=== PATIENT | female | born 1975 | race American Indian/Alaskan Native ===

== ENCOUNTER 2021-12-13 05:59 | Emergency (ER) | payer OTHER, SELFPAY ==
--- NOTE | 2021-12-13 06:01 | ED_ITS ---
HPI - Female Genitourinary General Chief complaint: Urogenital-Female Stated complaint: bladder/kidney pain x5 hours Time Seen by Provider: 12/13/21 06:00 History of Present Illness HPI Narrative: 46F nonsmoker with history of kidney stones presents with her in the chief complaint of a relatively sudden onset left flank pain that prevented her from sleeping this morning at about 130. She denies obvious provocation or palliation but states perhaps a gets worse with motion. Additionally she states that for the past day or perhaps to she has had urinary frequency, dysuria and urgency. She denies any fever chills and has no nausea or vomiting. She has had no change in appetite. She denies vaginal bleeding or discharge. She has no runny nose, sore throat or cough. She has had kidney stones in the past but also urinary tract infections and states this feels similar to both. Related Data Previous Rx's Medication Instructions Recorded cefdinir 300 mg capsule 300 mg PO BID #20 cap 12/13/21 ketorolac 10 mg tablet 10 mg PO Q6H PRN #14 tab 12/13/21 ondansetron 4 mg disintegrating 4 mg PO TID-QID PRN #10 tab 12/13/21 tablet Allergies Allergy/AdvReac Type Severity Reaction Status Date / Time No Known Drug Allergies Allergy Verified 12/13/21 06:10 Review of Systems Review of Systems Narrative: GENERAL: See HPI HEENT: Denies sinus pain, ear pain, sore throat, difficulty swallowing, dizziness. RESPIRATORY: Denies dyspnea, cough, wheezing, hemoptysis, sputum. CARDIOVASCULAR: Denies chest pain, palpitations, orthopnea, edema, GASTROINTESTINAL: Denies nausea, vomiting, abdominal pain, diarrhea, constipation, melena. : See HPI MUSCULOSKELETAL: denies weakness, joint pain, or bony pain SKIN: Denies rash, skin lesions, or other NEUROLOGIC: Denies weakness, headache, numbness, change in speech, confusion, seizures, incoordination. PSYCHIATRIC: No concerning psychosocial issues. 12 point review of systems is negative except for those stated above Exam Narrative Exam Narrative: GENERAL: [46 year old patient appears stated age. Well-developed patient, in mild distress. Obviously uncomfortable, rubbing her left flank HEAD: Atraumatic. Normocephalic. EYES: Pupils equal round and reactive. Extraocular motions intact. No scleral icterus. No injection or drainage. ENT: Nose without bleeding, purulent drainage. Throat without erythema, tonsillar hypertrophy or exudate. Airway patent. NECK: Trachea midline. Non tender CARDIOVASCULAR: Regular rate and rhythm without murmurs, gallops, or rubs. RESPIRATORY: Clear to auscultation. Breath sounds equal bilaterally. No wheezes, rales, or rhonchi. GASTROINTESTINAL: Abdomen soft, mild suprapubic tenderness, nondistended. EXTREMITIES: No edema or joint tenderness. BACK: Nontender without deformity or crepitance. No flank tenderness. NEURO: AOx3. SKIN: No rash or erythema of visible areas Initial Vital Signs Initial Vital Signs: Vital Signs Temperature 97.5 F L 12/13/21 06:10 Pulse Rate 88 12/13/21 06:10 Respiratory Rate 16 12/13/21 06:10 Blood Pressure 171/92 H 12/13/21 06:10 Pulse Oximetry 96 12/13/21 06:10 Course Orders Ordered: Discontinued Medications Sodium Chloride (Normal Saline 0.9%) 1,000 mls @ 1,000 mls/hr IV BOLUS ONE Stop: 12/13/21 07:11 Last Infusion: 12/13/21 07:40 Dose: 0 mls/hr Documented by: Admin: 12/13/21 06:22 Dose: 1,000 mls/hr Documented by: MARY Ceftriaxone Sodium 2,000 mg/ (Sodium Chloride) 100 mls @ 200 mls/hr IV NOW ONE Stop: 12/13/21 06:15 Last Infusion: 12/13/21 07:41 Dose: 0 mls/hr Documented by: Admin: 12/13/21 06:22 Dose: 200 mls/hr Documented by: MARY Ketorolac Tromethamine (Ketorolac 30 Mg/Ml Vial) 15 mg IV NOW ONE Stop: 12/13/21 06:13 Last Admin: 12/13/21 06:22 Dose: 15 mg Documented by: MARY Vital Signs Vital signs: Vital Signs - 8 hr 12/13/21 06:10 Temperature 97.5 F L Pulse Rate 88 Respiratory Rate 16 Blood Pressure 171/92 H Pulse Oximetry 96 MDM - Female Genitourinary Lab Data Result diagrams: 12/13/21 06:30 12/13/21 06:30 Labs: Lab Results 12/13/21 12/13/21 12/13/21 Range/Units 06:10 06:30 06:30 WBC 12.5 H (4.5-11.0) X10^3/uL RBC 4.66 (4.0-5.2) X10^6/uL Hgb 12.5 (12.0-16.0) g/dL Hct 38.0 (36-46) % MCV 81.6 (80-100) fL MCH 26.8 (26-34) PG MCHC 32.8 (30-36) % RDW 13.5 (11.6-14.8) % Plt Count 391 (150-400) X10^3/uL Neut % (Auto) 73.1 (50-75) % Lymph % (Auto) 16.9 L (25-40) % [place] % (Auto) 4.3 (3-14) % Eos % (Auto) 4.5 H (2-4) % Baso % (Auto) 1.2 (0-2) % Neut # (Auto) 9200 H (6518-5157) /uL Lymph # (Auto) 2100 (5739-2483) /uL [place] # (Auto) 500 (0-900) /uL Eos # (Auto) 600 H (0-450) /uL Baso # (Auto) 100 (0-100) /uL Sodium 138 (137-145) mmol/L Potassium 3.7 (3.4-5.1) mmol/L Chloride 104 (98-107) mmol/L Carbon Dioxide 27 (22-32) mmol/L BUN 13 (7-17) mg/dL Creatinine 0.65 (0.52-1.04) mg/dL Estimated GFR > 60 (>60) mL/min BUN/Creatinine Ratio 20.0 (6-22) Glucose 104 H (70-100) mg/dL Calcium 8.6 (8.4-10.2) mg/dL Urine RBC None seen (0-5/HPF) Urine WBC 30-100/hpf H (0-5/HPF) Ur Squamous Epith Cells 0-1 /hpf (0-5/HPF) Urine Bacteria Moderate (10-30) H (None) Ur Culture Indicated? Specimen cultured Point of Care Testing Test Results Negative Urine Dip Bedside Urine Glucose Negative Bedside Urine Bilirubin - Negative Bedside Urine Ketone - Negative Urine Specific [place] 1.010 Bedside Urine Occult Blood +++ Bedside Urine pH 6.0 Bedside Urine Protein - Negative Bedside Urine Urobilinogen - Negative Bedside Urine Nitrite - Negative Bedside Urine Leukocytes ++ [address] scan - abdomen/pelvis: Radiologist's Impression: Launch?[address] [address] [address] Scan Report Signed Patient: Amanda Walls MR#: [id number] : 1975 Acct:[id number] Age/Sex: 46 / F Date of Service: 12/13/21 Loc: ED Accession Number: [id number] ?? Procedure: CT kidney ureter bladder (KUB) Ordering Provider: Pito Castillo D.O. PROCEDURE:? CT KIDNEY URETER BLADDER (KUB) ? INDICATIONS:? flank pain, hematuria, history of kidney stones, ? TECHNIQUE:? Axial sections were acquired from the lung bases to the pubic symphysis.? Raghu nal and sagittal reformats were performed.? For radiation dose reduction, the following was used: ?automated exposure control, adjustment of mA and/or kV according to patient size.? ? COMPARISON:? None. ? FINDINGS:? Image quality:? Excellent.? ? Lung bases:? Unremarkable.? ? Heart:? No significant findings. ? URINARY: Right Kidney: ? No hydronephrosis.? There is a tiny 1-2 mm right-sided kidney st one, as on series 2, image 42. Right Ureter:? No hydroureter.? ? Left Kidney: ? No stones or hydronephrosis. Left Ureter:? No hydroureter.? ? Bladder:? Normal wall thickness. No stones. ? ? ? ABDOMEN: Liver:? Diffuse fatty liver infiltration is noted.? The liver is prominent in size and demonstrates no suspicious lesions. Gallbladder:? Removed.? ? Biliary ducts:? Unremarkable.? ? Pancreas:? Unremarkable.? ? Spleen:? Unremarkable.? ? Adrenal Glands:? Unremarkable.? ? ? Stomach and Bowel:? Stomach, small bowel loops, and colon are unremarkable.? Colonic diverticulosis is seen, without findings of active diverticulitis. Peritoneum:? No abnormal intraperitoneal fluid.? No free air.? ? Ventral Wall: ? No hernia.? Abdominal Nodes:? No enlarged retroperitoneal or mesenteric lymph nodes.? Vessels:? Aorta and inferior vena cava are normal in size.? ? PELVIS: Pelvic Organs: This patient is status post hysterectomy. No adnexal masses are seen.? Pelvic Nodes: Unremarkable. Miscellaneous: No inguinal hernias are seen. ? ? ? Bones:? Unremarkable. ? IMPRESSION:? Negative for ureteral stones or hydronephrosis. ? Tiny 1-2 mm right-sided kidney stone noted. ? ? Incidental note is made of: Enlarged, fatty liver Cholecystectomy Hysterectomy Diverticulosis, without active diverticulitis ? Note: No significant discrepancy from the preliminary report. ? Dictated by: Jhonathan Newsome M.D. on 12/13/2021 at 7:16 ? ? Approved by: Johnathan Newsome M.D. on 12/13/2021 at 7:19 ? Discharge Plan Departure Patient Disposition: Home Clinical Impression: Pyelonephritis Instructions: DI for Kidney Infection Activity Restrictions/Additional Instructions: *You have been diagnosed with [left flank pain from kidney infection. As we discussed your history, physical exam, labs and CT are very reassuring. There is no kidney stone and you have no signs of sepsis. *What to do: *Please continue to take your regular medications as directed. [x ] New medication prescriptions sent to your pharmacy: [[facility] [place] ] [ ] New medication written as a paper prescription [ ] No new medications given *Please follow up with your primary care provider in 2-3 days, call for an appointment. Let them know you were seen in the Emergency Department and that we ask that you be seen in follow up. We will electronically transmit a record of today's note if your PCP is in our system *If you do not have a primary care provider please contact the [facility] Resource line at [phone]. They will ask some questions about your medical history and help get you set up with a doctor in the community. *Return to Emergency Department if you should have any new, worsening or concerning symptoms, such as [fever greater than 101 F, shaking chills, worsening pain, persistent vomiting or other bothersome symptoms] Prescriptions: New cefdinir 300 mg capsule 300 mg PO BID Qty: 20 0RF ketorolac 10 mg tablet 10 mg PO Q6H PRN (Reason: pain) Qty: 14 0RF ondansetron 4 mg tablet,disintegrating 4 mg PO TID-QID PRN (Reason: nausea and vomiting) Qty: 10 0RF Referrals: Marie Gallagher MD [Primary Care Provider] -
[2021-12-13 06:10] VITALS: BP 171/92; PULSE 88; RESP 16; TEMP 36.4; O2SAT 96; BMI 45.7
--- NOTE | 2021-12-13 06:13 | DI.CT.S_ITS ---
PROCEDURE: CT KIDNEY URETER BLADDER (KUB) INDICATIONS: flank pain, hematuria, history of kidney stones, TECHNIQUE: Axial sections were acquired from the lung bases to the pubic symphysis. Coronal and sagittal reformats were performed. For radiation dose reduction, the following was used: automated exposure control, adjustment of mA and/or kV according to patient size. COMPARISON: None. FINDINGS: Image quality: Excellent. Lung bases: Unremarkable. Heart: No significant findings. URINARY: Right Kidney: No hydronephrosis. There is a tiny 1-2 mm right-sided kidney stone, as on series 2, image 42. Right Ureter: No hydroureter. Left Kidney: No stones or hydronephrosis. Left Ureter: No hydroureter. Bladder: Normal wall thickness. No stones. ABDOMEN: Liver: Diffuse fatty liver infiltration is noted. The liver is prominent in size and demonstrates no suspicious lesions. Gallbladder: Removed. Biliary ducts: Unremarkable. Pancreas: Unremarkable. Spleen: Unremarkable. Adrenal Glands: Unremarkable. Stomach and Bowel: Stomach, small bowel loops, and colon are unremarkable. Colonic diverticulosis is seen, without findings of active diverticulitis. Peritoneum: No abnormal intraperitoneal fluid. No free air. Ventral Wall: No hernia. Abdominal Nodes: No enlarged retroperitoneal or mesenteric lymph nodes. Vessels: Aorta and inferior vena cava are normal in size. PELVIS: Pelvic Organs: This patient is status post hysterectomy. No adnexal masses are seen. Pelvic Nodes: Unremarkable. Miscellaneous: No inguinal hernias are seen. Bones: Unremarkable. IMPRESSION: Negative for ureteral stones or hydronephrosis. Tiny 1-2 mm right-sided kidney stone noted. Incidental note is made of: Enlarged, fatty liver Cholecystectomy Hysterectomy Diverticulosis, without active diverticulitis Note: No significant discrepancy from the preliminary report. Dictated by: Jhonathan Newsome M.D. on 12/13/2021 at 7:16 Approved by: Jhonathan Newsome M.D. on 12/13/2021 at 7:19
[2021-12-13 06:22] LABS: RBC Urine None Seen (0-5/HPF)
[2021-12-13] MEDS: KETOROLAC 30 MG/ML VIAL 15 MG IV (06:22)
[2021-12-13] MEDS: cefTRIAXone 2,000 MG in SODIUM CHLORIDE 0.9% 100 ML 200 MG IV (06:22)
[2021-12-13] MEDS: SODIUM CHLORIDE 0.9% 1,000 ML 1000 ML IV (06:22)
[2021-12-13 06:23] LABS: Bacteria Urine Moderate (10-30); Culture Indicated Urine Specimen Cultured; Squamous Epithelial Cell Urine 0-1 /HPF (0-5/HPF); WBC Urine 30-100/HPF (0-5/HPF)
[2021-12-13 06:46] LABS: Add Manual Diff / Slide Review NO; Basophils Absolute Auto 100 /uL (0-100); Basophils Percent Auto 1.2 % (0-2); Blood Urea Nitrogen 13 mg/dL (7-17); Calcium 8.6 mg/dL (8.4-10.2); Carbon Dioxide 27 mmol/L (22-32); Chloride 104 mmol/L (98-107); Eosinophils Absolute Auto 600 /uL (0-450); Eosinophils Percent Auto 4.5 % (2-4); Estimated Glomerular Filt Rate > 60 mL/min (>60); Glucose 104 mg/dL (70-100); HEMOLYSIS < 15 (0-50); Hemoglobin 12.5 g/dL (12.0-16.0); Lymphocytes Absolute Auto 2100 /uL (1100-4500); Lymphocytes Percent Auto 16.9 % (25-40); Mean Corpuscular HGB Conc 32.8 % (30-36); Mean Corpuscular Hemoglobin 26.8 PG (26-34); Mean Corpuscular Volume 81.6 fL (80-100); Monocytes Absolute Auto 500 /uL (0-900); Monocytes Percent Auto 4.3 % (3-14); Neutrophils Absolute Auto 9200 /uL (1500-7000); Neutrophils Percent Auto 73.1 % (50-75); Platelet Count 391 X10^3/uL (150-400); Potassium 3.7 mmol/L (3.4-5.1); Red Blood Cell Count 4.66 X10^6/uL (4.0-5.2); Red Cell Distribution Width 13.5 % (11.6-14.8); Sodium 138 mmol/L (137-145); White Blood Cell Count 12.5 X10^3/uL (4.5-11.0)
[2021-12-13 07:36] VITALS: BP 154/77; PULSE 75; RESP 18; O2SAT 98
== END 2021-12-13 07:36 | disposition home or self-care (01) ==
PROVIDERS: Emergency Provider Emergency Medicine; Family Provider Family Medicine; PCP Family Medicine
DX: N12 Tubulo-interstitial nephritis, not specified as acute or chronic (principal); Z87.442 Personal history of urinary calculi
CPT/HCPCS: 36415; 74176; 80048; 81003; 81015; 81025; 85025; 87077; 87086; 87186; 96365; 96375; 99284; J0696; J1885